=== PATIENT | male | born 1990 | race Caucasian/White ===

== ENCOUNTER 2018-01-16 21:43 | Emergency (ER) | payer SELFPAY ==
[~2018-01-16] VITALS: Ht 185.4 cm; Wt 76.1 kg
[2018-01-16 21:43] VITALS: BP 127/75
[~2018-01-16 21:43] MED LIST: AZIT250T6 PO; NAPR-514 PO
[2018-01-16] MEDS: IV NORMAL SALINE 1,000ML 1,000 ML IV ONE (22:01)
[2018-01-16] MEDS: ASPIRIN 81 MG TAB.CHEW PO ONE (22:01)
--- NOTE | 2018-01-16 23:02 | PHYS DOC ---
Past History Past Medical History: No Pertinent History Past Surgical History: No Surgical History Alcohol Use: Rarely Drug Use: Marijuana, Methamphetamine Adult General Chief Complaint Chief Complaint: CHEST WALL PAIN [facility] HPI 27-year-old male with a history of methamphetamine and marijuana abuse as well as chronic tobacco abuse now presents to the emergency department complaining of right-sided chest pain. Patient states his right pectoral muscle is sore. He is not aware of any strenuous activity or change in his activity regimen however he does use methamphetamines and last use was earlier today. Patient has no exertional chest pain. His no shortness of breath. No pleuritic pain. No history of coronary artery disease or sudden cardiac at a young age in his family. No nausea vomiting diaphoresis. No prior history of pneumothorax. Patient denies trauma Review of Systems Review of Systems Constitutional: Denies fever or chills [] Eyes: Denies change in visual acuity, redness, or eye pain [] HENT: Denies nasal congestion or sore throat [] Respiratory: Denies cough or shortness of breath [] Cardiovascular: No additional information not addressed in HPI [] GI: Denies abdominal pain, nausea, vomiting, bloody stools or diarrhea [] : Denies dysuria or hematuria [] Musculoskeletal: Denies back pain or joint pain [] Integument: Denies rash or skin lesions [] Neurologic: Denies headache, focal weakness or sensory changes [] Endocrine: Denies polyuria or polydipsia [] All other systems were reviewed and found to be within normal limits, except as documented in this note. Current Medications Current Medications Current Medications Medications (Trade) Dose Ordered Sig/Emeli Start Time Stop Time Status Last Admin Dose Admin Aspirin (Children'S Aspirin) 324 mg 1X ONCE 01/16/18 22:30 01/16/18 22:31 DC Sodium Chloride 1,000 ml @ 1,000 mls/hr 1X ONCE 01/16/18 22:30 01/16/18 23:29 01/16/18 22:01 1,000 MLS/HR Allergies Allergies Allergies Coded Allergies Type Severity Reaction Last Updated Verified Penicillins Allergy Intermediate Unknown 03/07/16 Yes Physical Exam Physical Exam Alert communicative cooperative patient with restless appearance consistent with his stated history of methamphetamine use earlier today. Mild tachycardia in triage resolved on M.D. exam with heart rate of 90. Because membranes mildly dry supple neck clear lungs regular rate and rhythm. No murmur. No clinical fever. Benign abdomen. Right pectoral muscle with soft tissue tenderness without swelling, asymmetry, skin changes , crepitus or fluctuance. No bony tenderness. No axillary adenopathy appreciable. Normal use and range of motion of arm without limitation. Constitutional: Well developed, well nourished, no acute distress, non-toxic appearance. [] HENT: Normocephalic, atraumatic, bilateral external ears normal, oropharynx moist, no oral exudates, nose normal. [] Eyes: PERRLA, EOMI, conjunctiva normal, no discharge. [] Neck: Normal range of motion, no tenderness, supple, no stridor. [] Cardiovascular:Heart rate regular rhythm, no murmur [] Lungs & Thorax: Bilateral breath sounds clear to auscultation [] Abdomen: Bowel sounds normal, soft, no tenderness, no masses, no pulsatile masses. [] Skin: Warm, dry, no erythema, no rash. [] Back: No tenderness, no CVA tenderness. [] Extremities: No tenderness, no cyanosis, no clubbing, ROM intact, no edema. [] Neurologic: Alert and oriented X 3, normal motor function, normal sensory function, no focal deficits noted. [] Psychologic: Mildly Anxious affect Current Patient Data Vital Signs Vital Signs Date Time Temp Pulse Resp B/P (MAP) Pulse Ox O2 Delivery O2 Flow Rate FiO2 01/16/18 21:43 98.7 110 22 97 Room Air Lab Results Laboratory Tests Test 01/16/18 21:50 Troponin I Quantitative < 0.017 ng/mL (0-0.055) EKG EKG EKG with normal sinus rhythm at 90 normal axis no STEMI unremarkable study interpreted by me[] Radiology/Procedures Radiology/Procedures [Chest x-ray no pneumothorax. Right mid lung finding radiographically consistent with infiltrate versus mass. No bony abnormality. Interpreted by me Course & Med Decision Making Course & Med Decision Making Pertinent Labs and Imaging studies reviewed. (See chart for details) Signs and symptoms consistent with easily reproducible soft tissue muscle pain of the right pectoral muscle. Aspirin offered but patient refused. Chest x-ray with suggestion of right mid lung abnormality so CT of the chest will be done for definitive result. The EKG unremarkable. No evidence of PE pneumothorax or acute coronary syndrome. Tachycardia resolved. Patient hydrated. He is refusing any medications. Troponin negative. CT of the chest shows bullous disease right greater than left in the apex no evidence of pneumothorax or infiltrate. Incidental finding of a nodule and a granuloma.. Patient given a copy of his CAT scan for follow-up with his doctor for reevaluation, continued surveillance by repeat chest x-rays, and referral to a electronics specialist as needed. No further workup or treatment indicated after hydration. Patient aware of critical importance of avoiding drug use and that even a single use of illicit drugs or prescription drug abuse could result in or permanent disability. Patient has no evidence of psychiatric emergency and specifically no suicidality or homicidality. He did not intentionally overdose with his drug use. Patient stable and agrees with outpatient follow-up. Strict return precautions given. [] Dragon Disclaimer Dragon Disclaimer This electronic medical record was generated, in whole or in part, using a voice recognition dictation system. Departure Departure: Impression: Primary Impression: Pectoralis muscle strain Additional Impressions: Methamphetamine abuse Marijuana abuse Lung bullae Lung nodule Lung granuloma Disposition: HOME, SELF-CARE Condition: STABLE Referrals: PCP,NO (PCP) Patient Instructions: Marijuana Abuse-Brief, Methamphetamine Abuse, Complications, Muscle Strain, [id number] Additional Instructions: You have a sore right pectoralis muscle which appears to be secondary to some mild muscle strain. It is likely that this strain occurred during her methamphetamine intoxication earlier today. A full workup in the emergency department including EKG, chest x-ray and troponin was all normal and reassuring. For muscle soreness, take ibuprofen if desired, 600 mg every 6 hours as needed for discomfort. There was an incidental finding on your CAT scan of her lung bullae which means pockets of air inside the tissue of your lung. This is a chronic finding is does not require any acute intervention but you've been given a copy of the CT result to discuss with your doctor who could refer you to a electronics specialist if necessary. Be aware that any medical professional would recommend that you not use drugs and that even a single use of illicit drugs could result in or permanent disability. Follow-up for outpatient drug treatment if desired. Follow-up with your doctor tomorrow. Proceed to an emergency department for immediate evaluation of any new or severe symptoms Problem Qualifiers TOBY MANZANO MD Jan 16, 2018 23:02
[2018-01-16] MEDS: IOHEXOL 300 MG/ML 75 ML VIAL. IV ONE (23:27)
[2018-01-16] MEDS ORDERED: CONTRAST GIVEN MC PRN (23:30)
--- NOTE | 2018-01-17 00:04 | RAD ---
INDICATION: Abnormal CXR with right lower lobe finding COMPARISON: None. TECHNIQUE: Axial CT images obtained through the chest with contrast. One or more of the following individualized dose reduction techniques were utilized for this examination: 1. Automated exposure control; 2. Adjustment of the mA and/or kV according to patient size; 3. Use of iterative reconstruction technique. FINDINGS: Bullous changes at right greater than left lung apex. 3 mm nodule left upper lung. No evidence of pneumothorax. Calcified granuloma right lower lung. No focal airspace consolidation to suggest pneumonia. Thoracic aorta not aneurysmal. Probable residual thymus anterior mediastinum. Calcified lymph node right side of mediastinum. No gross osseous destructive lesion. IMPRESSION: No focal airspace consolidation. There is some bullous changes at lung apices. Calcified lung nodule and calcified lymph node in mediastinum which could be sequela of old granulomatous disease. Electronically signed by: Usama Ruiz MD (01/17/2018 12:01 AM) [id number]
--- NOTE | 2018-01-17 05:00 | EKG ---
[address] [address] Test Date: 2018-01-16 Test Time: 21:53:38 Pat Name: DAVID CHENG Department: Room: Gender: M [employer]: DINO : 1990 Requested By: TOBY MANZANO Order Number: [id number] Reading MD: Measurements Intervals [place] Rate: 90 P: 49 TN: 164 QRS: 70 QRSD: 94 T: 66 QT: 332 QTc: 410 Interpretive Statements SINUS RHYTHM NO SPECIFIC ECG ABNORMALITIES RI6.01 No previous ECG available for comparison
--- NOTE | 2018-01-17 07:24 | RAD ---
Portable chest, 01/16/2018: History: Chest pain, shortness of breath Comparison is made to a study from 05/06/2011. The heart size and pulmonary vascularity are normal. There is a calcified granuloma in the right lung base. No acute infiltrate is seen. There is no evidence of pleural fluid. IMPRESSION: No acute cardiopulmonary abnormality is detected.
== END 2018-01-17 00:27 | disposition home or self-care (01) ==
LOC: ER 21:43
DX: S29.011A Strain of muscle and tendon of front wall of thorax, initial encounter (principal); F15.10 Other stimulant abuse, uncomplicated; F12.10 Cannabis abuse, uncomplicated; J43.9 Emphysema, unspecified; R91.1 Solitary pulmonary nodule; J84.10 Pulmonary fibrosis, unspecified; Z72.0 Tobacco use; Z88.0 Allergy status to penicillin; X58.XXXA Exposure to other specified factors, initial encounter; Y93.89 Activity, other specified; Y99.8 Other external cause status; Y92.89 Other specified places as the place of occurrence of the external cause
CPT/HCPCS: 36415; 71045; 71260; 84484; 93005; 96360; 99285; Q9967; J7030